=== PATIENT | female | born 1950 | race Caucasian/White ===

== ENCOUNTER → 2020-09-14 | Outpatient (CLI) | payer MEDICARE, OTHER | LOC: RAD 08:11 | DX: R05 Cough (principal) | CPT/HCPCS: 74230; 92611-GN ==

== ENCOUNTER → 2021-03-11 | Outpatient (CLI) | payer MEDICARE, OTHER | LOC: KOH-I 09:57 | DX: R06.09 Other forms of dyspnea (principal); R91.8 Other nonspecific abnormal finding of lung field | CPT/HCPCS: 71046 ==

== ENCOUNTER → 2021-09-15 | Outpatient (CLI) | payer MEDICARE, OTHER | LOC: KOH-I 12:59 | DX: R05.9 Cough, unspecified (principal); R91.8 Other nonspecific abnormal finding of lung field | CPT/HCPCS: 71046 ==